=== PATIENT | male | born 1950 | race Caucasian/White ===

== ENCOUNTER 2017-01-13 08:37 | Day surgery (SDC) | payer OTHER ==
[~2017-01-13 08:37] MED LIST: NS 500 ML IV 500 ML IV ONE
[2017-01-13] MEDS ORDERED: VERSED ONE ×2 (09:03→15:23)
[2017-01-13] MEDS ORDERED: TETRACAINE 0.5% OPHTH 1 DOSE AFFEYE ONE ×5 (10:10→11:58)
[2017-01-13] MEDS ORDERED: VIGAMOX 0.5% OPHTH 1 DOSE AFFEYE ONE ×4 (10:11→11:58)
[2017-01-13] MEDS ORDERED: PROLENSA OPHTH 1 DOSE AFFEYE ONE (10:22)
[2017-01-13] MEDS ORDERED: ALPHAGAN-P OPHTH 1 DOSE AFFEYE ONE (10:23)
[2017-01-13] MEDS ORDERED: MYDRIACIL OPHTH 1 DOSE AFFEYE ONE ×5 (10:24→10:28)
[2017-01-13] MEDS ORDERED: CYCLOGYL 1% OPHTH 1 DOSE OP ONE ×5 (10:24→10:28)
[2017-01-13] MEDS ORDERED: AK-DILATE 2.5% OPHTH 1 DOSE OP ONE ×5 (10:24→10:28)
[2017-01-13] MEDS ORDERED: VERSED IVP ONE ×3 (11:22→11:35)
[2017-01-13] MEDS ORDERED: AK-DILATE 10% OPHTH 1 DOSE AFFEYE ONE (11:35)
[2017-01-13] MEDS ORDERED: ADRENALINE CHL INJ IJ ONE (11:57)
[2017-01-13] MEDS ORDERED: XYLOCAINE-MPF 1% IJ ONE (11:57)
[2017-01-13] MEDS ORDERED: BETADINE OPHTH SOLN 5% EACHEYE ONE (11:57)
[2017-01-13] MEDS ORDERED: DUOVISC IO ONE (11:58)
[2017-01-13 14:15] VITALS: BP 121/81
== END 2017-01-13 12:40 | disposition home or self-care (01) ==
LOC: SURG1 08:37
PROVIDERS: ATTEND Ophthalmology
PROC: 08RK3JZ Replacement of Left Lens with Synthetic Substitute, Percutaneous Approach (ICD-10-PCS; principal; 2017-01-13 11:15)
PROC: 08DK3ZZ Extraction of Left Lens, Percutaneous Approach (ICD-10-PCS; principal; 2017-01-13 11:15)
DX: H25.12 Age-related nuclear cataract, left eye (principal); H25.012 Cortical age-related cataract, left eye; H52.222 Regular astigmatism, left eye
CPT/HCPCS: A9270; A4217; J0170; J2250